=== PATIENT | male | born 1955 | race Caucasian/White ===

== ENCOUNTER 2020-10-26 22:29 | Inpatient (IN) | payer MEDICARE, MEDICAID ==
[~2020-10-26] VITALS: Ht 182.9 cm; Wt 115.3 kg
[~2020-10-26 22:29] MED LIST: BENTYL 20MG TAB20 MG PO; PROAIR HFA8.5 GM INH; VIBRAMYCIN100 MG PO; ZOFRAN ODT 4 MG4 MG PO
[2020-10-26 23:11] LABS: HEMOGLOBIN 14.7 gm/dl (14.0-17.5); RED BLOOD COUNT 5.52 M/UL (4.20-5.50); WHITE BLOOD COUNT 5.2 K/UL (4.5-11.0)
[2020-10-27] MEDS ORDERED: LISINOPRIL40 MG PO (08:17)
[2020-10-27] MEDS ORDERED: TOPROL XL50 MG PO (08:17)
[2020-10-27 08:35] LABS: HEMOGLOBIN 13.3 gm/dl (14.0-17.5)
[2020-10-27 08:38] LABS: RED BLOOD COUNT 4.96 M/UL (4.20-5.50); WHITE BLOOD COUNT 2.9 K/UL (4.5-11.0)
[2020-10-27] MEDS ORDERED: PROTONIX 40 MG40 M1 PO (10:16)
[2020-10-28 01:15] LABS: ACINETOBACTER BAUMANNII Not Detected (Negative); CANDIDA ALBICANS Not Detected (Negative); CANDIDA KRUSEI Not Detected (Negative); CANDIDA TROPICALIS Not Detected (Negative); ENTEROCOCCUS Not Detected (Negative); ESCHERICHIA COLI Not Detected (Negative); HAEMOPHILUS INFLUENZAE Not Detected (Negative); KLEBSIELLA OXYTOCA Not Detected (Negative); KLEBSIELLA PNEUMONIAE Not Detected (Negative); KPC-CARBAPENEM-RESISTANCE GENE Not Detected (Negative); PROTEUS Not Detected (Negative); PSEUDOMONAS AERUGINOSA Not Detected (Negative); SERRATIA MARCESANS Not Detected (Negative); STAPHYLOCOCCUS AUREUS Not Detected (Negative); STREP AGALACTIAE (GROUP B) Not Detected (Negative); STREP PYOGENES (GROUP A) Not Detected (Negative); STREPTOCOCCUS Not Detected (Negative); mecA (METHICILLIN RESIST GENE Not Detected (Negative); vanA/B (VANCOMYCIN RESIST GENE Not Detected (Negative)
[2020-10-28 01:18] LABS: STAPHYLOCOCCUS DETECTED (Negative)
[2020-10-28 04:45] LABS: HEMOGLOBIN 14.1 gm/dl (14.0-17.5); RED BLOOD COUNT 5.36 M/UL (4.20-5.50)
[2020-10-28 04:47] LABS: WHITE BLOOD COUNT 4.1 K/UL (4.5-11.0)
[2020-10-28 05:10] LABS: BUN/CREATININE RATIO 28 (0-10)
--- NOTE | 2020-10-28 18:56 | NUR ---
NOTIFIED PT O2 SAT 86%. PT ANXIOUS, RESP 40. MD ORDER TO TRANSFER TO ICU FOR INTUBATION.
[2020-10-29 05:52] LABS: HEMOGLOBIN 13.2 gm/dl (14.0-17.5); RED BLOOD COUNT 4.85 M/UL (4.20-5.50)
[2020-10-29 06:02] LABS: WHITE BLOOD COUNT 6.9 K/UL (4.5-11.0)
[2020-10-29 06:35] LABS: BUN/CREATININE RATIO 26 (0-10)
[2020-10-30 09:50] LABS: HEMOGLOBIN 12.4 gm/dl (14.0-17.5); RED BLOOD COUNT 4.6 M/UL (4.20-5.50); WHITE BLOOD COUNT 5.8 K/UL (4.5-11.0)
[2020-10-30 10:02] LABS: BUN/CREATININE RATIO 27 (0-10)
[2020-10-31 08:41] LABS: HEMOGLOBIN 12.6 gm/dl (14.0-17.5); RED BLOOD COUNT 4.57 M/UL (4.20-5.50)
[2020-10-31 09:12] LABS: BUN/CREATININE RATIO 42 (0-10)
[2020-11-01 05:57] LABS: HEMOGLOBIN 12.3 gm/dl (14.0-17.5); RED BLOOD COUNT 4.41 M/UL (4.20-5.50)
[2020-11-01 06:00] LABS: WHITE BLOOD COUNT 10.5 K/UL (4.5-11.0)
[2020-11-01 06:23] LABS: BUN/CREATININE RATIO 43 (0-10)
[2020-11-01 19:03] LABS: BUN/CREATININE RATIO 47 (0-10)
[2020-11-02 11:34] LABS: HEMOGLOBIN 13.4 gm/dl (14.0-17.5)
[2020-11-02 11:36] LABS: RED BLOOD COUNT 5.05 M/UL (4.20-5.50); WHITE BLOOD COUNT 13.6 K/UL (4.5-11.0)
[2020-11-02 11:54] LABS: BUN/CREATININE RATIO 53 (0-10)
[2020-11-03 05:07] LABS: HEMOGLOBIN 13.9 gm/dl (14.0-17.5); RED BLOOD COUNT 5.05 M/UL (4.20-5.50)
[2020-11-03 05:32] LABS: BUN/CREATININE RATIO 48 (0-10)
[2020-11-04 05:13] LABS: HEMOGLOBIN 14.4 gm/dl (14.0-17.5); RED BLOOD COUNT 5.24 M/UL (4.20-5.50)
[2020-11-04 05:30] LABS: WHITE BLOOD COUNT 17.1 K/UL (4.5-11.0)
[2020-11-04 06:13] LABS: BUN/CREATININE RATIO 45 (0-10)
[2020-11-05 05:36] LABS: HEMOGLOBIN 13.5 gm/dl (14.0-17.5); RED BLOOD COUNT 4.83 M/UL (4.20-5.50); WHITE BLOOD COUNT 18.9 K/UL (4.5-11.0)
[2020-11-05 06:04] LABS: BUN/CREATININE RATIO 49 (0-10)
[2020-11-06 08:33] LABS: HEMOGLOBIN 12.7 gm/dl (14.0-17.5); RED BLOOD COUNT 4.61 M/UL (4.20-5.50); WHITE BLOOD COUNT 17.4 K/UL (4.5-11.0)
[2020-11-07 04:42] LABS: HEMOGLOBIN 12.7 gm/dl (14.0-17.5); RED BLOOD COUNT 4.63 M/UL (4.20-5.50); WHITE BLOOD COUNT 19.2 K/UL (4.5-11.0)
[2020-11-07 05:08] LABS: BUN/CREATININE RATIO 70 (0-10)
[2020-11-08 08:19] LABS: HEMOGLOBIN 11.8 gm/dl (14.0-17.5); RED BLOOD COUNT 4.3 M/UL (4.20-5.50); WHITE BLOOD COUNT 16.8 K/UL (4.5-11.0)
[2020-11-08 08:44] LABS: BUN/CREATININE RATIO 61 (0-10)
[2020-11-09 05:25] LABS: HEMOGLOBIN 12.5 gm/dl (14.0-17.5); RED BLOOD COUNT 4.56 M/UL (4.20-5.50)
[2020-11-09 05:41] LABS: BUN/CREATININE RATIO 60 (0-10)
[2020-11-09 06:09] LABS: WHITE BLOOD COUNT 28.2 K/UL (4.5-11.0)
[2020-11-10 05:37] LABS: HEMOGLOBIN 10.4 gm/dl (14.0-17.5); RED BLOOD COUNT 3.83 M/UL (4.20-5.50); WHITE BLOOD COUNT 14.9 K/UL (4.5-11.0)
[2020-11-10 05:57] LABS: BUN/CREATININE RATIO 74 (0-10)
--- NOTE | 2020-11-10 09:41 | NUR ---
11/10/[address] ROPER SPOKE WITH FAMILY ABOUT CODE STATUS. THEY REQUESTED TO MAKE PATIENT DNR. DEIDRE TROTTER, RN AND MARILOU BARBOZA RN SPOKE TO PATIENTS SISTER, KAILYN REGAN, TO VERIFY THAT ALL FAMILY IS IN AGREEMENT TO MAKE PATIENT DNR
[2020-11-11 05:46] LABS: HEMOGLOBIN 9.9 gm/dl (14.0-17.5); RED BLOOD COUNT 3.62 M/UL (4.20-5.50); WHITE BLOOD COUNT 14.5 K/UL (4.5-11.0)
[2020-11-11 06:08] LABS: BUN/CREATININE RATIO 73 (0-10)
[2020-11-12 09:09] LABS: HEMOGLOBIN 10.4 gm/dl (14.0-17.5); RED BLOOD COUNT 3.77 M/UL (4.20-5.50)
[2020-11-12 09:11] LABS: WHITE BLOOD COUNT 23.4 K/UL (4.5-11.0)
[2020-11-12 09:33] LABS: BUN/CREATININE RATIO 46 (0-10)
--- NOTE | 2020-11-12 18:39 | NUR ---
REPORT CALLED TO [facility]
[2020-11-13 03:55] LABS: HEMOGLOBIN 10.7 gm/dl (14.0-17.5); RED BLOOD COUNT 3.85 M/UL (4.20-5.50); WHITE BLOOD COUNT 23.3 K/UL (4.5-11.0)
[2020-11-13 04:16] LABS: BUN/CREATININE RATIO 52 (0-10)
[2020-11-14 02:55] LABS: BUN/CREATININE RATIO 36 (0-10)
[2020-11-14 04:10] LABS: HEMOGLOBIN 9.7 gm/dl (14.0-17.5); RED BLOOD COUNT 3.55 M/UL (4.20-5.50)
[2020-11-15 02:39] LABS: HEMOGLOBIN 10.6 gm/dl (14.0-17.5); RED BLOOD COUNT 3.81 M/UL (4.20-5.50)
[2020-11-15 02:59] LABS: BUN/CREATININE RATIO 40 (0-10)
[2020-11-17 11:45] LABS: RED BLOOD COUNT 3.6 M/UL (4.20-5.50)
[2020-11-17 11:46] LABS: WHITE BLOOD COUNT 11.9 K/UL (4.5-11.0)
[2020-11-17 12:07] LABS: BUN/CREATININE RATIO 35 (0-10)
[2020-11-18 03:14] LABS: HEMOGLOBIN 9.7 gm/dl (14.0-17.5); RED BLOOD COUNT 3.5 M/UL (4.20-5.50)
[2020-11-18 03:22] LABS: WHITE BLOOD COUNT 8.9 K/UL (4.5-11.0)
[2020-11-18 03:37] LABS: BUN/CREATININE RATIO 36 (0-10)
[2020-11-19 04:54] LABS: HEMOGLOBIN 10.2 gm/dl (14.0-17.5); RED BLOOD COUNT 3.73 M/UL (4.20-5.50)
[2020-11-19 05:25] LABS: BUN/CREATININE RATIO 36 (0-10)
[2020-11-20 05:40] LABS: HEMOGLOBIN 10.8 gm/dl (14.0-17.5); RED BLOOD COUNT 3.9 M/UL (4.20-5.50)
[2020-11-20 06:11] LABS: BUN/CREATININE RATIO 40 (0-10)
[2020-11-21 06:13] LABS: HEMOGLOBIN 10.6 gm/dl (14.0-17.5); RED BLOOD COUNT 3.83 M/UL (4.20-5.50); WHITE BLOOD COUNT 9.4 K/UL (4.5-11.0)
[2020-11-21 06:29] LABS: BUN/CREATININE RATIO 45 (0-10)
[2020-11-22 06:29] LABS: HEMOGLOBIN 10.5 gm/dl (14.0-17.5); RED BLOOD COUNT 3.83 M/UL (4.20-5.50); WHITE BLOOD COUNT 8.5 K/UL (4.5-11.0)
[2020-11-22 06:50] LABS: BUN/CREATININE RATIO 46 (0-10)
[2020-11-23 06:57] LABS: HEMOGLOBIN 10.3 gm/dl (14.0-17.5); RED BLOOD COUNT 3.8 M/UL (4.20-5.50); WHITE BLOOD COUNT 9.4 K/UL (4.5-11.0)
[2020-11-23 07:47] LABS: BUN/CREATININE RATIO 50 (0-10)
[2020-11-24 10:23] LABS: HEMOGLOBIN 11.8 gm/dl (14.0-17.5); WHITE BLOOD COUNT 10.3 K/UL (4.5-11.0)
[2020-11-24 10:24] LABS: RED BLOOD COUNT 4.31 M/UL (4.20-5.50)
[2020-11-24 11:03] LABS: BUN/CREATININE RATIO 47 (0-10)
[2020-11-25 06:08] LABS: RED BLOOD COUNT 3.98 M/UL (4.20-5.50)
[2020-11-25 06:30] LABS: BUN/CREATININE RATIO 44 (0-10)
[2020-11-26 07:39] LABS: HEMOGLOBIN 9.9 gm/dl (14.0-17.5); RED BLOOD COUNT 3.68 M/UL (4.20-5.50); WHITE BLOOD COUNT 11.2 K/UL (4.5-11.0)
[2020-11-26 07:59] LABS: BUN/CREATININE RATIO 40 (0-10)
[2020-11-27 07:41] LABS: HEMOGLOBIN 9.4 gm/dl (14.0-17.5); RED BLOOD COUNT 3.52 M/UL (4.20-5.50); WHITE BLOOD COUNT 9.7 K/UL (4.5-11.0)
[2020-11-27 08:00] LABS: BUN/CREATININE RATIO 36 (0-10)
[2020-11-28 05:34] LABS: HEMOGLOBIN 10.6 gm/dl (14.0-17.5); RED BLOOD COUNT 3.76 M/UL (4.20-5.50); WHITE BLOOD COUNT 9.6 K/UL (4.5-11.0)
--- NOTE | 2020-11-28 10:15 | NUR ---
dr. min on the floor, will write order r/t potassium.
[2020-11-29 07:37] LABS: HEMOGLOBIN 9.6 gm/dl (14.0-17.5); RED BLOOD COUNT 3.72 M/UL (4.20-5.50); WHITE BLOOD COUNT 11.7 K/UL (4.5-11.0)
[2020-11-30 03:56] LABS: HEMOGLOBIN 10.6 gm/dl (14.0-17.5); RED BLOOD COUNT 3.88 M/UL (4.20-5.50); WHITE BLOOD COUNT 10.5 K/UL (4.5-11.0)
--- NOTE | 2020-11-30 18:44 | NUR ---
reported early this morning of patient episode of increase pulse and patient given tylenol for back pain. reported also lopressor r/t to above. dr. pedroza acknowledged
[2020-12-01 08:07] LABS: HEMOGLOBIN 10.1 gm/dl (14.0-17.5); RED BLOOD COUNT 3.76 M/UL (4.20-5.50); WHITE BLOOD COUNT 9.8 K/UL (4.5-11.0)
[2020-12-02 08:39] LABS: HEMOGLOBIN 9.7 gm/dl (14.0-17.5); RED BLOOD COUNT 3.67 M/UL (4.20-5.50); WHITE BLOOD COUNT 10.1 K/UL (4.5-11.0)
[2020-12-03 06:46] LABS: HEMOGLOBIN 10.1 gm/dl (14.0-17.5); RED BLOOD COUNT 3.72 M/UL (4.20-5.50); WHITE BLOOD COUNT 10.4 K/UL (4.5-11.0)
[2020-12-04 06:56] LABS: HEMOGLOBIN 10.6 gm/dl (14.0-17.5); RED BLOOD COUNT 3.91 M/UL (4.20-5.50); WHITE BLOOD COUNT 9.2 K/UL (4.5-11.0)
[2020-12-04 07:53] LABS: BUN/CREATININE RATIO 31 (0-10)
[2020-12-05 08:24] LABS: HEMOGLOBIN 10.4 gm/dl (14.0-17.5); RED BLOOD COUNT 3.88 M/UL (4.20-5.50); WHITE BLOOD COUNT 9.4 K/UL (4.5-11.0)
[2020-12-05 08:41] LABS: BUN/CREATININE RATIO 30 (0-10)
--- NOTE | 2020-12-05 09:55 | NUR ---
DR. HSIEH AWARE OF TWO EPISODES OF SVT THIS AM. NEW ORDERS NOTED FOR STAT EKG AND CARDIAC SCREEN PER LAB.
[2020-12-06 08:32] LABS: HEMOGLOBIN 10.1 gm/dl (14.0-17.5); RED BLOOD COUNT 3.79 M/UL (4.20-5.50)
[2020-12-06 08:43] LABS: WHITE BLOOD COUNT 13.3 K/UL (4.5-11.0)
[2020-12-06 08:55] LABS: BUN/CREATININE RATIO 29 (0-10)
[2020-12-07 04:27] LABS: RED BLOOD COUNT 3.36 M/UL (4.20-5.50); WHITE BLOOD COUNT 9.2 K/UL (4.5-11.0)
[2020-12-07 04:57] LABS: BUN/CREATININE RATIO 28 (0-10)
[2020-12-07] MEDS ORDERED: ATORVASTATIN CA20 MG PO (10:48)
[2020-12-07] MEDS ORDERED: COLACE SOL100 MG/10 GT (10:48)
[2020-12-07] MEDS ORDERED: FLUCONAZOLE50 MG PO (10:48)
[2020-12-07] MEDS ORDERED: ALDACTONE 25MG25 MG PO (10:48)
[2020-12-07] MEDS ORDERED: AMLODIPINE BESYL5 MG PO (10:48)
[2020-12-07] MEDS ORDERED: CALCIUM500 M1 PO (10:48)
[2020-12-07] MEDS ORDERED: MI-ACID80 MG PO (10:48)
[2020-12-07] MEDS ORDERED: FUROSEMIDE40 MG PO (10:48)
[2020-12-07] MEDS ORDERED: ASPIRIN EC81 MG PO (10:48)
[2020-12-07] MEDS ORDERED: POLYETHYLENE GL17 GM PO (10:48)
[2020-12-07] MEDS ORDERED: IPRAT-ALBUT 0.5-3 ML NEB (10:48)
[2020-12-07] MEDS ORDERED: HYDROXYZINE PAM25 MG PO (10:48)
[2020-12-07] MEDS ORDERED: HUMALOG 10100 UNITS/ SC (10:52)
[2020-12-07] MEDS ORDERED: K-TAB ER20 MEQ PO (10:52)
== END 2020-12-07 15:10 | DRG 870 ==
LOC: ER1 22:29 → PROG CARE 10-27 01:50 → M/S 10-27 01:50 → CCU 10-27 01:50 → CDU 10-27 01:50 → PROG CARE 10-28 12:16 → CCU 10-28 20:48 → PROG CARE 11-12 19:00 → M/S 11-20 15:11
PROVIDERS: Internal Medicine; Internal Medicine Pulmonary Disease; Student in an Organized Health Care Education/Training Program; Surgery; ADMIT Internal Medicine
PROC: 3E0333Z Introduction of Anti-inflammatory into Peripheral Vein, Percutaneous Approach (ICD-10-PCS; 2020-10-26)
PROC: XW033E5 Introduction of Remdesivir Anti-infective into Peripheral Vein, Percutaneous Approach, New Technology Group 5 (ICD-10-PCS; 2020-10-27)
PROC: XW033G5 Introduction of Sarilumab into Peripheral Vein, Percutaneous Approach, New Technology Group 5 (ICD-10-PCS; 2020-10-27)
PROC: 5A0935A Assistance with Respiratory Ventilation, Less than 24 Consecutive Hours, High Flow/Velocity Cannula (ICD-10-PCS; 2020-10-27)
PROC: 5A09357 Assistance with Respiratory Ventilation, Less than 24 Consecutive Hours, Continuous Positive Airway Pressure (ICD-10-PCS; 2020-10-27)
PROC: 02HV33Z Insertion of Infusion Device into Superior Vena Cava, Percutaneous Approach (ICD-10-PCS; 2020-10-28)
PROC: B548ZZA Ultrasonography of Superior Vena Cava, Guidance (ICD-10-PCS; 2020-10-28)
PROC: 8E0ZXY6 Isolation (ICD-10-PCS; 2020-10-28)
PROC: 0DH63UZ Insertion of Feeding Device into Stomach, Percutaneous Approach (ICD-10-PCS; principal; 2020-10-29)
PROC: 3E0G76Z Introduction of Nutritional Substance into Upper GI, Via Natural or Artificial Opening (ICD-10-PCS; 2020-10-29)
PROC: 3E033XZ Introduction of Vasopressor into Peripheral Vein, Percutaneous Approach (ICD-10-PCS; 2020-10-29)
PROC: 5A1955Z Respiratory Ventilation, Greater than 96 Consecutive Hours (ICD-10-PCS; 2020-10-30)
PROC: 0BH17EZ Insertion of Endotracheal Airway into Trachea, Via Natural or Artificial Opening (ICD-10-PCS; 2020-10-30)
PROC: 4A00X4Z Measurement of Central Nervous Electrical Activity, External Approach (ICD-10-PCS; 2020-11-08)
PROC: 5A0955A Assistance with Respiratory Ventilation, Greater than 96 Consecutive Hours, High Flow/Velocity Cannula (ICD-10-PCS; 2020-11-11)
PROC: B24BZZ4 Ultrasonography of Heart with Aorta, Transesophageal (ICD-10-PCS; 2020-11-23)
DX: A41.89 Other specified sepsis (principal); U07.1 COVID-19; J15.9 Unspecified bacterial pneumonia; J12.82 Pneumonia due to coronavirus disease 2019; J69.0 Pneumonitis due to inhalation of food and vomit; J80 Acute respiratory distress syndrome; G92.8 Other toxic encephalopathy; B37.1 Pulmonary candidiasis; N17.9 Acute kidney failure, unspecified; E87.2 Acidosis; J44.1 Chronic obstructive pulmonary disease with (acute) exacerbation; I69.351 Hemiplegia and hemiparesis following cerebral infarction affecting right dominant side; I47.1 Supraventricular tachycardia; J44.0 Chronic obstructive pulmonary disease with (acute) lower respiratory infection; B37.49 Other urogenital candidiasis; Z66 Do not resuscitate; D69.6 Thrombocytopenia, unspecified; F17.210 Nicotine dependence, cigarettes, uncomplicated; I11.0 Hypertensive heart disease with heart failure; I50.9 Heart failure, unspecified; E66.01 Morbid (severe) obesity due to excess calories; E11.65 Type 2 diabetes mellitus with hyperglycemia; T38.0X5A Adverse effect of glucocorticoids and synthetic analogues, initial encounter; E87.5 Hyperkalemia; E83.39 Other disorders of phosphorus metabolism; L89.316 Pressure-induced deep tissue damage of right buttock; F41.9 Anxiety disorder, unspecified; L89.322 Pressure ulcer of left buttock, stage 2; E88.09 Other disorders of plasma-protein metabolism, not elsewhere classified; M19.90 Unspecified osteoarthritis, unspecified site; R65.20 Severe sepsis without septic shock; L89.312 Pressure ulcer of right buttock, stage 2; R53.81 Other malaise; L89.152 Pressure ulcer of sacral region, stage 2; E87.6 Hypokalemia; I35.1 Nonrheumatic aortic (valve) insufficiency; R13.10 Dysphagia, unspecified; J45.909 Unspecified asthma, uncomplicated; D64.9 Anemia, unspecified; Z99.81 Dependence on supplemental oxygen; Z68.33 Body mass index [BMI] 33.0-33.9, adult; Z23 Encounter for immunization; Z88.1 Allergy status to other antibiotic agents; Z82.49 Family history of ischemic heart disease and other diseases of the circulatory system
CPT/HCPCS: ECHO; 31500; 36415; 36600; 70450; 70551; 71045; 74018; 74230; 80048; 80053; 80202; 81001; 82140; 82550; 82553; 82607; 82746; 82803; 82962; 83605; 83690; 83735; 83874; 83880; 84100; 84132; 84439; 84443; 84484; 85007; 85025; 85027; 85379; 85652; 86140; 87040; 87070; 87077; 87081; 87086; 87150; 87186; 87205; 90686; 92526; 92610; 92611-GN; 93005; 93306; 93970; 94002; 94003; 94640; 94660; 94760; 95819; 96374; 96375; 97110; 97110-GP-CQ; 97161; 97167; 97530; 97530-GP-CQ; 97535; 99285; A6212; G0008; J0330; J0360; J0456; J0690; J0696; J1100; J1650; J1940; J2060; J2185; J2248; J2250; J2270; J2543; J2704; J3010; J3370; J3480; J7030; J7050; J7070; Q0177; Q9967; U0002

== ENCOUNTER 2021-01-23 12:00 | Inpatient (IN) | payer MEDICARE, MEDICAID ==
[~2021-01-23] VITALS: Ht 182.9 cm; Wt 68.0 kg
[~2021-01-23 12:00] MED LIST changes: +ALDACTONE 25MG25 MG PO; +AMLODIPINE BESYL5 MG PO; +ASPIRIN EC81 MG PO; +ATORVASTATIN CA20 MG PO; +AUGMENTIN 875-1 EACH PO; +CALCIUM500 M1 PO; +COLACE SOL100 MG/10 GT; +FLUCONAZOLE50 MG PO; +FUROSEMIDE40 MG PO; +HUMALOG 10100 UNITS/ SC; +HYDROXYZINE PAM25 MG PO; +IPRAT-ALBUT 0.5-3 ML NEB; +K-TAB ER20 MEQ PO; +LISINOPRIL40 MG PO; +MI-ACID80 MG PO; +POLYETHYLENE GL17 GM PO; +PROTONIX 40 MG40 M1 PO; +TOPROL XL50 MG PO
[2021-01-23 14:32] LABS: HEMOGLOBIN 9.7 gm/dl (14.0-17.5); RED BLOOD COUNT 3.68 M/UL (4.20-5.50); WHITE BLOOD COUNT 20.7 K/UL (4.5-11.0)
[2021-01-23 15:04] LABS: BUN/CREATININE RATIO 23 (0-10)
[2021-01-23] MEDS ORDERED: AMLODIPINE BESY10 MG PO (19:10)
[2021-01-23] MEDS ORDERED: FUROSEMIDE20 MG PO (19:11)
[2021-01-23] MEDS ORDERED: FERROUS SULFAT325 MG PO (19:12)
[2021-01-23] MEDS ORDERED: SANTYL OINT 3030 GM TP (19:13)
[2021-01-23] MEDS ORDERED: DAILY VALUE1 EACH PO (19:14)
[2021-01-24 07:46] LABS: HEMOGLOBIN 8.5 gm/dl (14.0-17.5); RED BLOOD COUNT 3.39 M/UL (4.20-5.50); WHITE BLOOD COUNT 17.6 K/UL (4.5-11.0)
[2021-01-24 08:04] LABS: BUN/CREATININE RATIO 18 (0-10)
[2021-01-25 05:52] LABS: HEMOGLOBIN 8.8 gm/dl (14.0-17.5); RED BLOOD COUNT 3.41 M/UL (4.20-5.50)
[2021-01-25 06:06] LABS: WHITE BLOOD COUNT 22.4 K/UL (4.5-11.0)
[2021-01-25 06:19] LABS: BUN/CREATININE RATIO 21 (0-10)
[2021-01-26 07:24] LABS: HEMOGLOBIN 8.9 gm/dl (14.0-17.5); RED BLOOD COUNT 3.42 M/UL (4.20-5.50); WHITE BLOOD COUNT 20.9 K/UL (4.5-11.0)
[2021-01-26 08:37] LABS: BUN/CREATININE RATIO 18 (0-10)
[2021-01-27 03:54] LABS: HEMOGLOBIN 8.4 gm/dl (14.0-17.5); RED BLOOD COUNT 3.3 M/UL (4.20-5.50); WHITE BLOOD COUNT 17.5 K/UL (4.5-11.0)
[2021-01-27 04:15] LABS: BUN/CREATININE RATIO 20 (0-10)
[2021-01-28 03:32] LABS: HEMOGLOBIN 8.1 gm/dl (14.0-17.5); RED BLOOD COUNT 3.15 M/UL (4.20-5.50); WHITE BLOOD COUNT 15.8 K/UL (4.5-11.0)
[2021-01-28 04:15] LABS: BUN/CREATININE RATIO 18 (0-10)
--- NOTE | 2021-01-28 19:14 | NUR ---
PT HR 120-170 DR. MANA MAX NOTIFIED. ORDERS TO TRANSFER TO PCU. NOTIFIED HOUSE AND WAITING BED.
--- NOTE | 2021-01-28 19:54 | NUR ---
PT HR 130-160 TRIED TO CALL REPORT 0 STATES THE ROOM IS DIRTY AND DIDN'T TAKE REPORT. CALLED HOUSE TO GET A STAT CLEAN. AT 1944 ROOM STILL NOT CLEANED, WE EXPLAINED THAT WE NEED TO GO AHEAD AND GIVE REPORT. AT 1952 JOHN TOOK REPORT, SHE WILL LET US KNOW WHEN THE ROOM IS CLEAN AND WE WILL CONTINUE TO MOINITOR THE PT'S HR.
--- NOTE | 2021-01-28 20:29 | NUR ---
PT LEFT THE FLOOR BY BED AT 2030 BY DAR FOR PCU
[2021-01-29 03:54] LABS: HEMOGLOBIN 8.3 gm/dl (14.0-17.5); RED BLOOD COUNT 3.22 M/UL (4.20-5.50); WHITE BLOOD COUNT 17.5 K/UL (4.5-11.0)
[2021-01-29 04:15] LABS: BUN/CREATININE RATIO 17 (0-10)
[2021-01-30 03:41] LABS: HEMOGLOBIN 8.3 gm/dl (14.0-17.5); RED BLOOD COUNT 3.21 M/UL (4.20-5.50); WHITE BLOOD COUNT 15.4 K/UL (4.5-11.0)
[2021-01-30 04:00] LABS: BUN/CREATININE RATIO 17 (0-10)
[2021-01-31 04:07] LABS: HEMOGLOBIN 8.3 gm/dl (14.0-17.5); RED BLOOD COUNT 3.21 M/UL (4.20-5.50); WHITE BLOOD COUNT 16.1 K/UL (4.5-11.0)
[2021-01-31 04:31] LABS: BUN/CREATININE RATIO 17 (0-10)
[2021-02-03 06:11] LABS: RED BLOOD COUNT 3.12 M/UL (4.20-5.50); WHITE BLOOD COUNT 12.3 K/UL (4.5-11.0)
[2021-02-03 06:39] LABS: BUN/CREATININE RATIO 19 (0-10)
[2021-02-04 07:18] LABS: BUN/CREATININE RATIO 17 (0-10)
[2021-02-04] MEDS ORDERED: ELIQUIS 5 MG TAB5 MG PO (11:03)
[2021-02-04] MEDS ORDERED: LOPRESSOR 25 MG25 MG PO (11:03)
[2021-02-04] MEDS ORDERED: K-TAB ER20 MEQ PO (11:05)
--- NOTE | 2021-02-04 15:27 | NUR ---
NOTIFIED DR SANTANA OF POTASSIUM 3.1 AFTER REPLACEMENT THIS AM. NEW ONE TIME ORDER NOTED.
--- NOTE | 2021-02-04 16:11 | NUR ---
REPORT CALLED TO [facility] NURSE ADDIS.
== END 2021-02-04 15:48 | disposition home health service (06) | DRG 871 ==
LOC: ER1 12:00 → CDU 16:36 → PROG CARE 16:36 → M/S 16:36 → PROG CARE 01-28 20:41 → MED SURG 4 02-02 16:54
PROVIDERS: Emergency Medicine; Internal Medicine Infectious Disease; Physician Assistant; ADMIT Internal Medicine
DX: A41.9 Sepsis, unspecified organism (principal); L89.314 Pressure ulcer of right buttock, stage 4; I69.351 Hemiplegia and hemiparesis following cerebral infarction affecting right dominant side; I82.413 Acute embolism and thrombosis of femoral vein, bilateral; I82.431 Acute embolism and thrombosis of right popliteal vein; R53.83 Other fatigue; I11.0 Hypertensive heart disease with heart failure; I50.9 Heart failure, unspecified; J44.9 Chronic obstructive pulmonary disease, unspecified; R19.7 Diarrhea, unspecified; E87.6 Hypokalemia; D50.9 Iron deficiency anemia, unspecified; E11.43 Type 2 diabetes mellitus with diabetic autonomic (poly)neuropathy; K31.84 Gastroparesis; I48.0 Paroxysmal atrial fibrillation; Z86.16 Personal history of COVID-19; Z90.49 Acquired absence of other specified parts of digestive tract; Z98.890 Other specified postprocedural states; Z79.84 Long term (current) use of oral hypoglycemic drugs; Z79.899 Other long term (current) drug therapy; Z99.81 Dependence on supplemental oxygen; Z79.82 Long term (current) use of aspirin
CPT/HCPCS: 36415; 71045; 80048; 80053; 80202; 82728; 82962; 83036; 83540; 83550; 83605; 83735; 84132; 85025; 87040; 87070; 87205; 87449; 93005; 93971; 96365; 96367; 97110; 97110-GP-CQ; 97162; 97164; 97166; 97168; 97530; 97530-GP-CQ; 99285; C9113; J0692; J1160; J1335; J1650; J1940; J2405; J3370; J3480; J7030; J7050; J7070; U0002